=== PATIENT | female | born 1985 | race Caucasian/White ===

== ENCOUNTER 2016-12-04 09:55 | Day surgery (SDC) | payer OTHER ==
[~2016-12-04] VITALS: Ht 160 cm; Wt 99.8 kg
[~2016-12-04 09:55] MED LIST: AMIT75TA PO; VICO5TAB16 PO
[2016-12-04] MEDS ORDERED: LR 1,000 ML IV ONE (10:30)
[2016-12-04 10:43] LABS: CONTROL LINE HCG INT CTR LINE PRESENT
[2016-12-04 11:00] LABS: MEAN CORPUSCULAR HEMOGLOBIN 29.8 pg (27.0-33.0); MEAN CORPUSCULAR HGB CONC 34.1 g/dl (32.0-36.5); MEAN CORPUSCULAR VOLUME 87.4 fl (80.0-96.0); RED CELL DISTRIBUTION WIDTH 13.1 % (11.5-14.5); WHITE BLOOD COUNT 10.1 K/mm3 (4.0-10.0)
[2016-12-04] MEDS ORDERED: MIDAZOLAM INJ 2 MG/2 ML VIAL (J2250) As Ordered ONE (13:09)
[2016-12-04] MEDS ORDERED: SILVER NITRATE APPLICATOR As Ordered ONE (13:09)
[2016-12-04] MEDS ORDERED: LIDOCAINE 2% INJ 100 MG/5 ML SDV (FOR ANES.) As Ordered ONE (13:09)
[2016-12-04] MEDS ORDERED: ONDANSETRON 4MG/2ML VIAL (J2405) As Ordered ONE (13:09)
[2016-12-04] MEDS ORDERED: fentaNYL 100 MCG/2 ML INJECTION (J3010) As Ordered ONE (13:09)
[2016-12-04] MEDS ORDERED: PROPOFOL 200 MG/20 ML VIAL As Ordered ONE (13:09)
[2016-12-04] MEDS ORDERED: LIDOCAINE 1% SDV INJ 30 ML VIAL As Ordered ONE (13:09)
[2016-12-04] MEDS ORDERED: ROCURONIUM BROMIDE 50 MG/5 ML VIAL/SYRINGE As Ordered ONE (13:09)
[2016-12-04] MEDS ORDERED: dexameTHASONE 4 MG/ML 1ML VIAL (J1100) As Ordered ONE (13:18)
[2016-12-04] MEDS ORDERED: LR 1,000 ML IV SCH ×2 (14:00→14:15)
[2016-12-04] MEDS ORDERED: MEPERIDINE INJ 25 MG/ML VIAL (J2175) IV PRN (14:15)
[2016-12-04] MEDS ORDERED: fentaNYL 100 MCG/2 ML INJECTION (J3010) IV PRN (14:15)
[2016-12-04] MEDS ORDERED: ONDANSETRON 4MG/2ML VIAL (J2405) IV PRN (14:15)
[2016-12-04] MEDS ORDERED: PERCOCET 5MG/325MG TAB As Ordered ONE (14:17)
[2016-12-04] MEDS ORDERED: PERCOCET 5MG/325MG TAB PO ONE ×2 (14:30→15:45)
[2016-12-04 15:40] VITALS: BP 122/88
== END 2016-12-04 15:55 | disposition home or self-care (01) ==
LOC: M SDC 09:55
PROVIDERS: ATTEND Obstetrics & Gynecology
DX: N93.9 Abnormal uterine and vaginal bleeding, unspecified (principal); N84.0 Polyp of corpus uteri; G43.909 Migraine, unspecified, not intractable, without status migrainosus; J30.2 Other seasonal allergic rhinitis; E66.9 Obesity, unspecified; Z79.899 Other long term (current) drug therapy; Z87.891 Personal history of nicotine dependence
CPT/HCPCS: 36415; 58558; 84703; 85027; 86850; 86900; 86901; 88305; J1100; J2250; J2405; J3010